=== PATIENT | female | born 1945 | race Caucasian/White ===

== ENCOUNTER 2019-12-20 12:32 | Outpatient (CLI) | payer OTHER, SELFPAY ==
--- NOTE | ~2019-12-20 | CT_ITS ---
EXAMINATION: CT pelvis w con DATE: 12/20/2019 14:21 INDICATION: Pelvic mass. TECHNIQUE: Computed tomography (CT) of the pelvis was performed with 100 mL Omnipaque 350 intravenous contrast. Automated exposure control and iterative reconstruction technique were employed. The dose- length product was 640.75 mGy-cm. COMPARISON: None FINDINGS: There are no dilated loops of bowel. There are no pathologically enlarged lymph nodes. Ther e is no free intraperitoneal fluid. Pelvic floor relaxation is noted. In the anterior subcutaneous fa t at the midline, there is a 2.2 x 0.3 x 5.5 cm fluid collection. There is a 2.1 x 0.7 cm intramuscul ar lipoma in left abdominal wall. There is moderate fatty atrophy of the left rectus femoris muscle. There is severe lumbar spondylosis. IMPRESSION: 1. Thin fluid collection in the anterior subcutaneous fat at the midline, which may be a seroma, parcel wrapper sully hematoma, or abscess. 2. Small intramuscular lipoma in left abdominal wall. Reviewed, dictated and finalized at location A. [employer] IMPRESSION: 1. Thin fluid collection in the anterior subcutaneous fat at the midline, which may be a seroma, chronic hematoma, or abscess. 2. Small intramuscular lipoma in left abdominal wall.
[2019-12-20 14:19] LABS: Blood Urea Nitrogen 19 mg/dL (8-26); Estimated Glomerular Filt Rate > 60
== END 2019-12-20 12:33 | disposition home or self-care (01) ==
PROVIDERS: Visit Provider Urology
DX: R19.00 Intra-abdominal and pelvic swelling, mass and lump, unspecified site (principal)
CPT/HCPCS: 72193; Q9967

== ENCOUNTER → 2023-10-02 08:01 | Outpatient (CLI) | payer OTHER, SELFPAY ==
--- NOTE | ~2023-10-02 | MR_ITS ---
EXAMINATION: MR lumbar spine wo con DATE: 10/02/2023 09:02 INDICATION: Chronic low back pain. TECHNIQUE: Magnetic resonance imaging (MRI) of the lumbar spine was performed without intravenous con trast. Sequences included sagittal T2-weighted FSE, sagittal T2-weighted FS FSE, sagittal T1-weighted FSE, and axial T2-weighted FSE. COMPARISON: None FINDINGS: There is 3 mm retrolisthesis of L2 on L3 and L3 on L4. There is a chronic compression fract ure of T12 with 1/5 loss of height. There is moderately decreased disc height at L1-L2 and L2-L3 and severely decreased disc height at L3-L4. The distal spinal cord signal intensity is normal. The conus medullaris is at L1. The following disc levels are specifically discussed: L1-L2: There is a central protrusion. There is no facet joint osteoarthritis. There is no neural fora tamiko stenosis. There is mild central canal stenosis. L2-L3: The disc is bulging. There is mild right facet joint osteoarthritis. There is mild bilateral n eural foraminal stenosis. There is mild central canal stenosis. L3-L4: The disc is bulging and has an annular fissure. There is moderate right and mild left facet tim int osteoarthritis. There is mild right and moderate left neural foraminal stenosis. There is mild ce ntral canal stenosis. L4-L5: The disc is bulging. There is severe bilateral facet joint osteoarthritis. There is mild bilat eral neural foraminal stenosis. There is no central canal stenosis. L5-S1: This is bulging. There is severe bilateral facet joint osteoarthritis. There is mild bilateral neural foraminal stenosis. There is mild central canal stenosis. IMPRESSION: 1. Severe lumbar spondylosis. Reviewed, dictated and finalized at location A. [employer]
== END ==
PROVIDERS: PCP Family Medicine; Visit Provider Family Medicine
DX: M47.896 Other spondylosis, lumbar region (principal)
CPT/HCPCS: 72148